=== PATIENT | female | born 1960 | race Caucasian/White ===

== ENCOUNTER 2017-12-30 05:57 | Outpatient (CLI) | payer SELFPAY | END 2017-12-30 05:58 | disposition EMS.NT | LOC: EMS 05:57 | PROVIDERS: ATTEND Surgery | DX: S81.819A Laceration without foreign body, unspecified lower leg, initial encounter (principal); V59.40XA Driver of pick-up truck or van injured in collision with unspecified motor vehicles in traffic accident, initial encounter; Y92.413 State road as the place of occurrence of the external cause ==